=== PATIENT | female | born 1985 | race American Indian/Alaskan Native ===

== ENCOUNTER 2016-03-30 16:59 | Outpatient (CLI) | payer MEDICAID ==
[2016-03-30 14:54] VITALS: BP 125/64
[2016-03-30 15:45] LABS: Basophils % (Auto) 0.3 % (0.0-1.8); Eosinophils % (Auto) 0.4 % (0.0-4.3); Hematocrit 32.3 % (30.3-42.9); Hemoglobin 11.1 gm/dl (10.1-14.3); Mean Corpuscular HGB Conc 34 % (30-34); Mean Corpuscular Hemoglobin 32 pg (28-32); Mean Corpuscular Volume 95 fl (79-97); Platelet Count 247 K/mm3 (140-440); Red Blood Count 3.41 M/mm3 (3.65-5.03); Red Cell Distribution Width 12.2 % (13.2-15.2)
[2016-03-30 16:00] LABS: Bilirubin,Urine NEG (Negative); Blood,Urine NEG (Negative); Ketones,Urine NEG (Negative); Leukocyte Esterase,Urine NEG (Negative); Mucus,Urine FEW /HPF; Nitrite,Urine NEG (Negative); Protein,Urine <15 mg/dL mg/dL (Negative); Urobilinogen,Urine < 2.0 mg/dL (<2.0)
[~2016-03-30 16:59] MED LIST: LACTATED RINGERS 500 ML IV ONE
--- NOTE | 2016-03-31 10:02 | Ultrasound Report ---
OB ULTRASOUND: HISTORY: No care. TECHNIQUE: Transabdominal ultrasound with Doppler interrogation. Gestation: yo Position: breech Amniotic Fluid: WNL (7-24 cm) BABAK = 16.6 cm Placenta: posterior Placental Grade: I Heart Rate: 138 BPM Cervical length: 2.2 cm (Normal > 3 cm) NEUROANATOMY VISUALIZED: Choroid Plexus Cisterna Magnum Cerebellum Lateral Ventricle ANATOMY VISUALIZED: Stomach Kidneys Bladder Diaphragm 4 Chamber Heart Heart 3 Vessel Cord Abd. Cord Insert SPINE VISUALIZED: Longitudinal AP BPD: 6.7 cm = 27 w 1 d HC: 25.4 cm = 27 w 4 d AC: 23.8 cm = 28 w 1 d FL: 5.7 cm = 30 w 1 d HC/AC Ratio: 1.07 Cephalic Index: 76.1 Estimated Weight: 1256 grams LMP: 09-18-15 Clinical age = 27 w 5 d EDC: 06-24-16 US Gest. Age = 28 w 2 d EDC: 06-20-16
== END 2016-03-30 18:58 | disposition home or self-care (01) ==
LOC: TRG 16:59
PROVIDERS: ATTEND Obstetrics & Gynecology
DX: O32.1XX0 Maternal care for breech presentation, not applicable or unspecified (principal); O77.9 Labor and delivery complicated by fetal stress, unspecified; O47.03 False labor before 37 completed weeks of gestation, third trimester; Z3A.29 29 weeks gestation of pregnancy
CPT/HCPCS: 36415; 59025; 76805; 81001; 85025

== ENCOUNTER 2016-06-15 11:55 | Outpatient (CLI) | payer MEDICAID ==
--- NOTE | 2016-06-15 14:37 | Ultrasound Report ---
ULTRASOUND OB LIMITED History: Rupture of membranes Technique: Transabdominal ultrasound with Doppler interrogation. Gestation: Single Position: Cephalic Amniotic Fluid: Normal BABAK = 11.7 cm Heart Rate: 153 BPM
== END 2016-06-15 14:42 | disposition home or self-care (01) ==
LOC: TRG 11:55
PROVIDERS: ATTEND Obstetrics & Gynecology
DX: O42.92 Full-term premature rupture of membranes, unspecified as to length of time between rupture and onset of labor (principal); O47.1 False labor at or after 37 completed weeks of gestation; Z3A.38 38 weeks gestation of pregnancy
CPT/HCPCS: 59025; 76815

== ENCOUNTER 2016-06-15 15:33 | Outpatient (CLI) | payer MEDICAID ==
[2016-06-15 16:04] VITALS: BP 121/71
[2016-06-15 18:36] LABS: Bilirubin,Urine NEG (Negative); Blood,Urine NEG (Negative); Ketones,Urine NEG (Negative); Leukocyte Esterase,Urine NEG (Negative); Mucus,Urine FEW /HPF; Nitrite,Urine NEG (Negative); Protein,Urine <15 mg/dL mg/dL (Negative); WBC,Urine < 1.0 /HPF (0.0-6.0)
== END 2016-06-15 18:09 | disposition home or self-care (01) ==
LOC: TRG 15:33
PROVIDERS: ATTEND Obstetrics & Gynecology
DX: O47.03 False labor before 37 completed weeks of gestation, third trimester (principal); Z3A.38 38 weeks gestation of pregnancy
CPT/HCPCS: 59025; 81001

== ENCOUNTER 2018-08-22 09:11 | Emergency (ER) | payer MEDICAID ==
[2018-08-22 09:26] VITALS: BP 105/68
[2018-08-22 10:43] LABS: HCG Qualitative,Urine Positive (Negative)
[2018-08-22 10:45] LABS: Bacteria,Urine 1+ /HPF (Negative); Bilirubin,Urine NEG (Negative); Blood,Urine NEG (Negative); Color,Urine Yellow (Yellow); Mucus,Urine 1+ /HPF; Protein,Urine <15 mg/dL mg/dL (Negative)
== END 2018-08-22 12:01 | disposition left against medical advice (07) ==
LOC: ED 09:11
DX: R11.10 Vomiting, unspecified (principal); Z53.21 Procedure and treatment not carried out due to patient leaving prior to being seen by health care provider
CPT/HCPCS: 81001; 81025

== ENCOUNTER 2019-01-27 12:39 | Inpatient (IN) | payer MEDICAID ==
[2019-01-27] MEDS ORDERED: LACTATED RINGERS 1,000 ML ONE (14:13)
[2019-01-27] MEDS ORDERED: ONDANSETRON 4 MG/2 ML INJ ONE (14:25)
[2019-01-27] MEDS ORDERED: ONDANSETRON 4 MG/2 ML INJ IV ONE (15:00)
[2019-01-27] MEDS ORDERED: LACTATED RINGERS 500 ML IV ONE (15:00)
[2019-01-27 15:06] LABS: Bilirubin,Urine NEG (Negative); Blood,Urine NEG (Negative); Color,Urine Yellow (Yellow); Mucus,Urine FEW /HPF
[2019-01-27] MEDS ORDERED: LACTATED RINGERS 1,000 ML IV SCH (16:00)
[2019-01-27] MEDS ORDERED: AZITHROMYCIN 500 MG in SODIUM CHLORIDE 0.9% 250ML 250 ML IV ONE (18:00)
[2019-01-27] MEDS: LACTATED RINGERS 1,000 ML IV SCH ×2 (18:00→20:42)
--- NOTE | 2019-01-27 18:30 | Ultrasound Report ---
ULTRASOUND BIOPHYSICAL PROFILE INDICATION / CLINICAL INFORMATION: bpp/fabian. COMPARISON: 11/15/2018 FINDINGS: BREATHING MOVEMENT = 0 GROSS BODY MOVEMENT = 2 TONE = 2 QUALITATIVE AMNIOTIC FLUID VOLUME = 2 TOTAL BIOPHYSICAL SCORE = 6/8 AMNIOTIC FLUID INDEX (cm) = 23.7 PRESENTATION: Cephalic. HEART RATE (beats per minute): 131 IMPRESSION: 1. biophysical profile = 6/8 , due to absent breathing movements during the exam. Follow- up exam should be considered to evaluate for breathing movements. 2. Normal amniotic fluid index. Signer Name: Yann Bal MD Signed: 01/27/2019 6:25 PM Workstation Name: [email or web address]
--- NOTE | 2019-01-27 18:30 | Ultrasound Report ---
ULTRASOUND BIOPHYSICAL PROFILE INDICATION / CLINICAL INFORMATION: bpp/fabian. COMPARISON: 11/15/2018 FINDINGS: BREATHING MOVEMENT = 0 GROSS BODY MOVEMENT = 2 TONE = 2 QUALITATIVE AMNIOTIC FLUID VOLUME = 2 TOTAL BIOPHYSICAL SCORE = 6/8 AMNIOTIC FLUID INDEX (cm) = 23.7 PRESENTATION: Cephalic. HEART RATE (beats per minute): 131 IMPRESSION: 1. biophysical profile = 6/8 , due to absent breathing movements during the exam. Follow- up exam should be considered to evaluate for breathing movements. 2. Normal amniotic fluid index. Signer Name: Yann aBl MD Signed: 01/27/2019 6:25 PM Workstation Name: [email or web address]
--- NOTE | 2019-01-27 19:01 | History and Physical Report ---
History of Present Illness Date of examination: 01/27/19 Date of admission: 01/27/19 18:33 Chief complaint: SROM History of present illness: Pt is a 33yo BF EDC 02/23/19; EGA 36 1/7 weeks presents to L&D complaining of SROM clear fluid @ followed by irregular contractions. She received late care at [facility] since 27 weeks and course significant for previous C Section followed by x 2. records are available and GBS is Negative. 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 History: chlamydia, trichomonas Family/Genetic History: none Social history: no significant social history, single - Obstetrical History Expected Date of Delivery: 02/23/19 Actual Gestation: 36 Week(s) 2 Day(s) : 7 Medications and Allergies Allergies Allergy/AdvReac Type Severity Reaction Status Date / Time peanut Allergy Hives Verified 08/22/18 09:17 Home Medications Medication Instructions Recorded Confirmed Last Taken Type ALBUTEROL Inhaler(NF) [VENTOLIN 0.13 puff 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 06/18/16 06/18/16 06/17/16 History Inhaler(NF)] Ciprofloxacin (Nf) [Cipro] 500 mg PO BID 06/18/16 06/18/16 06/15/16 History Fluconazole 150 mg PO BID 06/18/16 06/18/16 06/15/16 History Vits96/Iron Fum/Folic 10 mg PO DAILY 06/18/16 06/18/16 06/18/16 History [ Tablet] Ferrous Sulfate [Feosol 325 MG tab] 325 mg PO BID #60 tablet 06/20/16 Unknown Rx Vit-Fe Fumar-FA [ 1 each PO QDAY #30 tablet 06/20/16 Unknown Rx Vitamin] oxyCODONE /ACETAMINOPHEN [Percocet 1 tab PO Q4H PRN #20 tablet 06/20/16 Unknown Rx 5/325 mg] Active Meds: Active Medications Lactated Ringer's (Lactated Ringers) 1,000 mls @ 125 mls/hr IV DIRECT QUENTIN Azithromycin 500 mg/ Sodium (Chloride) 250 mls @ 250 mls/hr IV ONCE ONE Stop: 01/27/19 18:59 Azithromycin 500 mg/ Sodium (Chloride) 250 mls @ 250 mls/hr IV Q24HR QUENTIN; Protocol Review of Systems All systems: negative - Vital Signs Vital signs: Vital Signs Temp Pulse Resp BP 98.5 F 99 H 14 122/66 01/27/19 13:50 01/27/19 13:50 01/27/19 13:50 01/27/19 13:50 Temp Pulse Resp BP Pulse Ox 98.5 F 99 H 14 122/66 01/27/19 13:50 01/27/19 13:59 01/27/19 13:50 01/27/19 13:59 - Physical Exam Breasts: Positive: deferred Abdomen: Positive: normal appearance, soft Genitourinary (Female): Positive: normal external genitalia Vagina: Positive: normal moisture Uterus: Positive: enlarged Extremities: Positive: normal - Obstetrical FHR: category 1 Uterine Contraction Monitor Mode: External Results Result Diagrams: 01/27/19 20:52 Abnormal lab results 01/27/19 Range/Units Unknown Urine pH 9.0 H (5.0-7.0) All other labs normal. Ultrasound: report reviewed (Cephalic) Assessment and Plan - Patient Problems (1) 36 weeks gestation of Onset Date: 01/27/19 Current Visit: Yes Status: Acute Plan to address problem: A: IUP @ 36 1/7 weeks PPROM Previous C Section Previous x 2 + Chlamydia - untreated P: Admit to L&D for Expectant vaginal delivery TOLAC IV Zithromax (2) premature rupture of membranes (PPROM) with onset of labor within 24 hours of rupture in third trimester, antepartum Onset Date: 01/27/19 Current Visit: Yes Status: Acute (3) Previous section Onset Date: 01/27/19 Current Visit: No Status: Chronic (4) History of Onset Date: 01/27/19 Current Visit: No Status: Chronic
[2019-01-27] MEDS ORDERED: LIDOCAINE (2%) 20 MG/1 ML VIAL 20 ML MDV INFILTRATI ONE (19:11)
[2019-01-27] MEDS ORDERED: ePHEDrine SULFATE 50 MG/1 ML INJ IV PRN (19:11)
[2019-01-27] MEDS ORDERED: MINERAL OIL 30 ML ORAL LIQD PO PRN (19:11)
[2019-01-27] MEDS ORDERED: TERBUTALINE 1 MG/1 ML INJ SUB-Q PRN (19:11)
[2019-01-27] MEDS ORDERED: fentaNYL 100 MCG/2 ML INJ IV PRN (19:11)
[2019-01-27] MEDS ORDERED: TERBUTALINE 1 MG/1 ML INJ IVP PRN (19:11)
[2019-01-27] MEDS ORDERED: OXYTOCIN DRIP 30 UNITS/500 ML BAG IV SCH ×2 (20:00)
[2019-01-27] MEDS ORDERED: OXYTOCIN 20 UNIT/1000ML DRIP 20 UNITS/1,000 ML BAG IV SCH (20:00)
[2019-01-27 21:13] LABS: Hematocrit 26.5 % (30.3-42.9); Hemoglobin 8.7 gm/dl (10.1-14.3); Mean Corpuscular HGB Conc 33 % (30-34); Mean Corpuscular Volume 87 fl (79-97); Platelet Count 205 K/mm3 (140-440); Red Blood Count 3.03 M/mm3 (3.65-5.03); Red Cell Distribution Width 13.9 % (13.2-15.2)
[2019-01-27] MEDS: BUTORPHANOL 2 MG/1 ML INJ IV PRN (23:16)
[2019-01-28] MEDS ORDERED: ALBUTEROL 2.5 MG/3 ML NEBU IH PRN (00:10)
[2019-01-28] MEDS ORDERED: ONDANSETRON 4 MG/2 ML INJ IV PRN ×2 (00:14→09:43)
[2019-01-28] MEDS: LACTATED RINGERS 1,000 ML IV SCH (04:08)
[2019-01-28] MEDS: BUTORPHANOL 2 MG/1 ML INJ IV PRN (06:40)
[2019-01-28] MEDS ORDERED: BICITRA ORAL LIQD 30ML PO ONE (09:39)
[2019-01-28] MEDS ORDERED: METOCLOPRAMIDE 10 MG/2 ML INJ IV ONE (09:39)
[2019-01-28] MEDS ORDERED: FAMOTIDINE 20 MG/2 ML INJ IV ONE (09:39)
[2019-01-28] MEDS ORDERED: HYDROmorphone 1 MG/1 ML INJ IV PRN (09:43)
[2019-01-28] MEDS ORDERED: PROMETHAZINE 25 MG RECT SUPP PR PRN (09:43)
[2019-01-28] MEDS ORDERED: NALOXONE 0.4 MG/1 ML INJ IV PRN ×2 (09:43→11:37)
[2019-01-28] MEDS ORDERED: PROMETHAZINE 25 MG TAB PO PRN (09:43)
--- NOTE | 2019-01-28 09:43 | Anesthesia Consultation ---
Anesthesia Consult and Med Hx Date of service: 01/28/19 - Airway Anesthetic Teeth Evaluation: Good ROM Head & Neck: Adequate Mental/Hyoid Distance: Adequate Mallampati Class: Class II Intubation Access Assessment: Good - Pulmonary Exam CTA: Yes - Cardiac Exam Cardiac Exam: RRR - Pre-Operative Health Status ASA Pre-Surgery Classification: ASA2, Emergency Proposed Anesthetic Plan: Spinal - Pulmonary Hx Asthma: Yes COPD: No Hx Pneumonia: No - Cardiovascular System Hx Hypertension: No Hx Heart Attack/AMI: No - Central Nervous System Hx Seizures: No CVA: No Hx Psychiatric Problems: No - Endocrine Hx Renal Disease: No Hx End Stage Renal Disease: No Hx Liver Disease: No Hx Hypothyroidism: No Hx Hyperthyroidism: No - Hematic Hx Anemia: No Hx Sickle Cell Disease: No - Other Systems Hx Alcohol Use: No Hx Cancer: Yes (cervical)
--- NOTE | 2019-01-28 09:45 | Anesthesia Day of Surgery ---
Anesthesia Day of Surgery - Day of Surgery Patient Examined: Yes Patient H&P Reviewed: Yes Patient is NPO: Yes
--- NOTE | 2019-01-28 09:51 | Progress Note ---
Assessment and Plan - Patient Problems (1) 36 weeks gestation of Onset Date: 01/27/19 Current Visit: Yes Status: Acute Plan to address problem: A: IUP @ 36 2/7 weeks PPROM Previous C Section Previous x 2 + Chlamydia - untreated P: Will proceed with a Repeat C Section with BTL (2) premature rupture of membranes (PPROM) with onset of labor within 24 hours of rupture in third trimester, antepartum Onset Date: 01/27/19 Current Visit: Yes Status: Acute (3) Previous section Onset Date: 01/27/19 Current Visit: No Status: Chronic (4) History of Onset Date: 01/27/19 Current Visit: No Status: Chronic Subjective - Subjective Date of service: 01/28/19 Principal diagnosis: IUP @ 36 2/7 weeks; PPROM Interval history: Pt is a 33yo BF EDC 02/23/19; EGA 36 2/7 weeks (EDC 02/13/19 per pt giving EGA 37 5/7 weeks) presented to L&D complaining of SROM clear fluid 01/27/19 @ followed by irregular contractions. She received late care at [facility] since 27 weeks and course significant for previous C Section followed by x 2. She received pitocin last night, but this morning she changed her mind and desires a Repeat C Section with Bilateral Tubal Ligation. Patient reports: loss of fluid, movement normal, contractions, no new complaints, no vaginal bleeding Objective - Vital Signs Vital Signs: Vital Signs - 12hr 01/27/19 01/27/19 01/27/19 21:49 21:54 23:16 Temperature Pulse Rate 92 H 70 Respiratory 24 Rate Blood Pressure 119/78 Blood Pressure [Left] O2 Sat by Pulse 99 Oximetry 01/27/19 01/27/19 01/27/19 23:26 23:28 23:29 Temperature 97.1 F L Pulse Rate 83 83 85 Respiratory 24 Rate Blood Pressure 108/60 Blood Pressure 108/60 [Left] O2 Sat by Pulse 98 Oximetry 01/27/19 01/27/19 01/27/19 23:31 23:36 23:41 Temperature Pulse Rate 90 82 90 Respiratory Rate Blood Pressure Blood Pressure [Left] O2 Sat by Pulse 100 98 98 Oximetry 01/27/19 01/27/19 01/27/19 23:46 23:51 23:55 Temperature Pulse Rate 88 91 H 103 H Respiratory Rate Blood Pressure 129/82 Blood Pressure [Left] O2 Sat by Pulse 97 97 Oximetry 01/27/19 01/28/19 01/28/19 23:56 00:01 00:06 Temperature Pulse Rate 98 H 101 H 108 H Respiratory Rate Blood Pressure Blood Pressure [Left] O2 Sat by Pulse 98 97 98 Oximetry 01/28/19 01/28/19 01/28/19 00:11 00:16 00:21 Temperature Pulse Rate 107 H 117 H 98 H Respiratory 20 Rate Blood Pressure Blood Pressure [Left] O2 Sat by Pulse 97 97 98 Oximetry 01/28/19 01/28/19 01/28/19 00:25 00:26 00:31 Temperature Pulse Rate 91 H 96 H 96 H Respiratory Rate Blood Pressure 129/69 Blood Pressure [Left] O2 Sat by Pulse 98 98 Oximetry 01/28/19 01/28/19 01/28/19 00:36 00:41 00:46 Temperature Pulse Rate 114 H 111 H 94 H Respiratory Rate Blood Pressure Blood Pressure [Left] O2 Sat by Pulse 99 98 100 Oximetry 01/28/19 01/28/19 01/28/19 00:51 00:54 00:56 Temperature Pulse Rate 94 H 83 87 Respiratory Rate Blood Pressure 104/57 Blood Pressure [Left] O2 Sat by Pulse 98 96 Oximetry 01/28/19 01/28/19 01/28/19 01:01 01:06 01:11 Temperature Pulse Rate 93 H 94 H 98 H Respiratory Rate Blood Pressure Blood Pressure [Left] O2 Sat by Pulse 99 98 98 Oximetry 01/28/19 01/28/19 01/28/19 01:16 01:21 01:24 Temperature Pulse Rate 85 79 82 Respiratory Rate Blood Pressure 116/78 Blood Pressure [Left] O2 Sat by Pulse 98 99 Oximetry 01/28/19 01/28/19 01/28/19 01:26 01:31 01:36 Temperature Pulse Rate 76 79 84 Respiratory Rate Blood Pressure Blood Pressure [Left] O2 Sat by Pulse 98 99 98 Oximetry 01/28/19 01/28/19 01/28/19 01:41 01:46 01:51 Temperature Pulse Rate 83 84 87 Respiratory Rate Blood Pressure Blood Pressure [Left] O2 Sat by Pulse 99 99 99 Oximetry 01/28/19 01/28/19 01/28/19 01:55 01:56 02:01 Temperature Pulse Rate 83 88 94 H Respiratory Rate Blood Pressure 112/68 Blood Pressure [Left] O2 Sat by Pulse 98 98 Oximetry 01/28/19 01/28/19 01/28/19 02:06 02:11 02:16 Temperature Pulse Rate 87 87 76 Respiratory Rate Blood Pressure Blood Pressure [Left] O2 Sat by Pulse 99 98 99 Oximetry 01/28/19 01/28/19 01/28/19 02:21 02:30 02:35 Temperature Pulse Rate 96 H 80 95 H Respiratory Rate Blood Pressure Blood Pressure [Left] O2 Sat by Pulse 99 99 99 Oximetry 01/28/19 01/28/19 01/28/19 02:40 02:45 02:50 Temperature Pulse Rate 95 H 80 96 H Respiratory Rate Blood Pressure Blood Pressure [Left] O2 Sat by Pulse 99 98 99 Oximetry 01/28/19 01/28/19 01/28/19 02:54 02:55 03:00 Temperature Pulse Rate 87 92 H 104 H Respiratory Rate Blood Pressure 110/68 Blood Pressure [Left] O2 Sat by Pulse 99 99 Oximetry 01/28/19 01/28/19 01/28/19 03:05 03:10 03:15 Temperature Pulse Rate 73 74 97 H Respiratory Rate Blood Pressure Blood Pressure [Left] O2 Sat by Pulse 99 100 100 Oximetry 01/28/19 01/28/19 01/28/19 03:20 03:25 03:26 Temperature Pulse Rate 83 85 95 H Respiratory Rate Blood Pressure 125/80 Blood Pressure [Left] O2 Sat by Pulse 100 99 Oximetry 01/28/19 01/28/19 01/28/19 03:30 03:35 03:40 Temperature 97.7 F Pulse Rate 81 104 H 87 Respiratory Rate Blood Pressure Blood Pressure [Left] O2 Sat by Pulse 99 100 99 Oximetry 01/28/19 01/28/19 01/28/19 03:45 03:50 03:54 Temperature Pulse Rate 87 83 86 Respiratory Rate Blood Pressure 107/66 Blood Pressure [Left] O2 Sat by Pulse 99 99 Oximetry 01/28/19 01/28/19 01/28/19 03:55 04:00 04:05 Temperature Pulse Rate 99 H 82 97 H Respiratory Rate Blood Pressure Blood Pressure [Left] O2 Sat by Pulse 98 99 99 Oximetry 01/28/19 01/28/19 01/28/19 04:10 04:15 04:20 Temperature Pulse Rate 98 H 93 H 85 Respiratory Rate Blood Pressure Blood Pressure [Left] O2 Sat by Pulse 100 97 99 Oximetry 01/28/19 01/28/19 01/28/19 04:24 04:25 04:30 Temperature Pulse Rate 84 84 81 Respiratory Rate Blood Pressure 112/68 Blood Pressure [Left] O2 Sat by Pulse 98 98 Oximetry 01/28/19 01/28/19 01/28/19 04:35 04:40 04:45 Temperature Pulse Rate 89 83 90 Respiratory Rate Blood Pressure Blood Pressure [Left] O2 Sat by Pulse 99 98 99 Oximetry 01/28/19 01/28/19 01/28/19 04:50 04:55 05:06 Temperature Pulse Rate 88 76 Respiratory Rate Blood Pressure Blood Pressure [Left] O2 Sat by Pulse 99 92 91 Oximetry 01/28/19 01/28/19 01/28/19 05:07 05:12 05:17 Temperature Pulse Rate 97 H 68 73 Respiratory Rate Blood Pressure Blood Pressure [Left] O2 Sat by Pulse 99 98 97 Oximetry 01/28/19 01/28/19 01/28/19 05:22 05:25 05:27 Temperature Pulse Rate 75 72 81 Respiratory Rate Blood Pressure 119/72 Blood Pressure [Left] O2 Sat by Pulse 98 97 Oximetry 01/28/19 01/28/19 01/28/19 05:32 05:37 05:42 Temperature Pulse Rate 88 76 84 Respiratory Rate Blood Pressure Blood Pressure [Left] O2 Sat by Pulse 99 98 98 Oximetry 01/28/19 01/28/19 01/28/19 05:47 05:52 05:55 Temperature Pulse Rate 84 82 76 Respiratory Rate Blood Pressure 116/73 Blood Pressure [Left] O2 Sat by Pulse 98 98 Oximetry 01/28/19 01/28/19 01/28/19 05:57 06:02 06:07 Temperature Pulse Rate 80 77 83 Respiratory Rate Blood Pressure Blood Pressure [Left] O2 Sat by Pulse 99 99 96 Oximetry 01/28/19 01/28/19 01/28/19 06:24 06:54 07:24 Temperature Pulse Rate 76 78 74 Respiratory Rate Blood Pressure 98/55 116/56 115/60 Blood Pressure [Left] O2 Sat by Pulse Oximetry 11/01/28/19 01/28/19 07:54 08:24 09:11 Temperature Pulse Rate 76 86 96 H Respiratory Rate Blood Pressure 120/73 118/62 Blood Pressure [Left] O2 Sat by Pulse 100 Oximetry 01/28/19 01/28/19 01/28/19 09:12 09:14 09:16 Temperature Pulse Rate 85 85 83 Respiratory Rate Blood Pressure 138/76 Blood Pressure [Left] O2 Sat by Pulse 93 100 Oximetry 01/28/19 09:24 Temperature Pulse Rate 89 Respiratory Rate Blood Pressure 123/67 Blood Pressure [Left] O2 Sat by Pulse Oximetry - Exam Abdomen: Present: normal appearance, soft Uterus: Present: normal FHR: category 1 Uterine Contraction Monitor Mode: External Cervical Dilatation: 1 (per nurse) Cervical Effacement Percentage: 50 (per nurse) station: -3 Uterine Contraction Pattern: Regular Uterine Tone Measurement Phase: Contraction Uterine Contraction Intensity: Strong/Firm - Labs Labs: Abnormal Labs 01/27/19 01/27/19 20:52 Unknown RBC 3.03 L Hgb 8.7 L Hct 26.5 L Urine pH 9.0 H Laboratory Results - last 24 hr 01/27/19 01/27/19 01/27/19 20:52 20:55 Unknown WBC 5.7 RBC 3.03 L Hgb 8.7 L Hct 26.5 L MCV 87 MCH 29 MCHC 33 RDW 13.9 Plt Count 205 Urine Color Yellow Urine Turbidity Clear Urine pH 9.0 H Ur Specific [place] 1.017 Urine Protein 100 mg/dl Urine Glucose (UA) Neg Urine Ketones Neg Urine Blood Neg Urine Nitrite Neg Urine Bilirubin Neg Urine Urobilinogen 2.0 Ur Leukocyte Esterase Neg Urine WBC (Auto) 1.0 Urine RBC (Auto) 2.0 U Epithel Cells (Auto) 2.0 Urine Mucus Few Blood Type A POSITIVE Antibody Screen Negative
[2019-01-28] MEDS ORDERED: ONDANSETRON 4 MG/2 ML INJ ONE (09:57)
[2019-01-28] MEDS ORDERED: DEXMEDETOMIDINE 200 MCG/2 ML VIAL IV ONE (09:57)
--- NOTE | 2019-01-28 09:58 | Ultrasound Report ---
US OB limited INDICATION: BABAK. COMPARISON: 01/27/2019 FINDINGS: Amniotic fluid index currently measures 17.3 cm, within normal limits. heart rate measures 1 31 bpm. position is cephalic. Signer Name: Yann Bal MD Signed: 01/28/2019 9:54 AM Workstation Name: [id number]
[2019-01-28] MEDS ORDERED: ceFAZolin/Water 2 GM/20 ML 2 GM/20 ML SYRINGE IV NR (10:00)
[2019-01-28] MEDS ORDERED: OXYTOCIN 20 UNIT/1000ML DRIP 20 UNITS/1,000 ML BAG IV SCH ×2 (10:00→12:00)
[2019-01-28] MEDS ORDERED: LACTATED RINGERS 1,000 ML IV SCH (10:00)
[2019-01-28] MEDS ORDERED: METOCLOPRAMIDE 10 MG/2 ML INJ ONE (10:03)
[2019-01-28] MEDS ORDERED: SODIUM CHLORIDE 0.9% IRR 1,500 ML BOTTLE IR ONE (10:45)
[2019-01-28] MEDS ORDERED: ceFAZolin/STERILE WATER 2 GM/20 ML SYRINGE IV ONE (10:45)
[2019-01-28] MEDS ORDERED: WATER FOR IRRIG STERILE 1,500 ML BOTTLE IR ONE (10:45)
[2019-01-28] MEDS ORDERED: PHENYLEPHRINE/NS 1,000 MCG/10 ML SYRINGE (OR USE) IV ONE (10:54)
[2019-01-28] MEDS ORDERED: HYDROmorphone 1 MG/1 ML INJ ONE (10:56)
[2019-01-28] MEDS ORDERED: fentaNYL 100 MCG/2 ML INJ ONE ×2 (11:00→11:11)
[2019-01-28] MEDS ORDERED: dexAMETHasone 20 MG/5 ML VIAL ONE (11:04)
[2019-01-28] MEDS ORDERED: BUPIVACAINE/PF (0.5%) 5 MG/1 ML 30 ML VIAL INFILTRATI ONE (11:04)
[2019-01-28] MEDS ORDERED: MIDAZOLAM 2 MG/2 ML INJ ONE (11:13)
--- NOTE | 2019-01-28 11:33 | Operative Report ---
Operative Report Operative Report: Date of procedure: 01/28/2019 Pre-operative diagnosis: 1. Intrauterine at 36 2/7 weeks 2. Prete rm Premature Rupture of Membranes 3. Previous C Section 4. Desires permanent sterilization Post-operative diagnosis: same Procedure name(s): 1. Repeat low transverse section 2. Bilateral Tubal Ligation Surgeon: Joseph Gutiérrez MD Web Site Administrator: None Anesthesia: Spinal anesthesia by Wes Sheriff CRNA EBL: 500 mL's Findings: A 2953 gm female Apgars 8 at 1 minute 9 at 5 minutes. Clear amniotic fluid. Normal uterus with normal tubes and ovaries bilaterally. Procedure: After the patient was prepped and draped in usual sterile fashion, and after satisfactory level of spinal anesthesia was obtained, the skin knife was used to make a transverse skin incision through the previous skin scar. The incision was incised down to layer of the fascia, which was nicked in the midline and extended laterally using the Bovie cautery. The rectus muscles were dissected off the rectus fascia both superiorly and inferiorly. The rectus bellies in the midline, and the peritoneum was entered under direct visualization. The peritoneal incision was extended superiorly and inferiorly. A bladder flap was created and the bladder blade was then placed. The uterus was scored in a curvilinear linear fashion, entered in the midline revealing clear amniotic fluid. The 's head was delivered onto the surgical field, and the oropharynx and nasopharynx were bulb suctioned. The rest of the infant's body was delivered, cord was doubly clamped and cut and the infant was handed to the awaiting respiratory team. The placenta was manually removed from the uterus, and the uterus removed from its normal anatomical position. After gentle uterine lavage, the incision was inspected and found to be without extensions. It was then closed in 2 layers using 0 Vicryl suture in a running interlocking fashion, the second layer imbricating the first. After good hemostasis was achieved, copious amounts or irrigation was performed, and the gutters were suctioned free of blood and blood clots. Attention was then turned to the tubal ligation. First the right fallopian tube was grasped using the [place], and after identifying the fimbriated end of the tube, the Filsche clip was applied to the proximal portion of the right tube. The same procedure was performed on the left fallopian tube. The left fallopian tube was grasped using the [place], and after identifying the fimbriated end of the tube, the Filsche clip was applied to the proximal portion of the left tube. Next, the peritoneum was re-approximated using 3-0 Vicryl suture in a running interlocking fashion, and then the rectus muscles were loosely re-approximated using 3-0 Vicryl suture in a [id number] configuration. The fascia was then re-approximated using #1 Vicryl suture in running interlocking fashion. The subcutaneous layer was made hemostatic using Bovie cautery, and the skin edges re-approximated using 4- 0 Vicryl suture in a sub-cuticular fashion. Patient tolerated the procedure well was transported to recovery in stable condition.
[2019-01-28] MEDS ORDERED: SIMETHICONE 80 MG CHEW TAB PO PRN (11:37)
[2019-01-28] MEDS ORDERED: LANOLIN/ZINC/DIMETHICONE (LANSINOH) 7 GM TP PRN (11:37)
[2019-01-28] MEDS ORDERED: SENNOSIDES 8.6 MG TAB PO PRN (11:37)
[2019-01-28] MEDS ORDERED: WITCH HAZEL/ GLYCERIN PAD TP PRN (11:37)
[2019-01-28] MEDS ORDERED: ACETAMINOPHEN 325 MG TAB PO PRN (11:37)
[2019-01-28] MEDS ORDERED: MAGNESIUM HYDROXIDE (MOM) ORAL LIQD UDC PO PRN (11:37)
--- NOTE | 2019-01-28 12:02 | Post Anesthesia Evaluation ---
- Post Anesthesia Evaluation Patient Participated: Yes Airway Patent: Yes Stable Respiratory Function: Yes Nausea/Vomiting: No Temp > 96.8F: Yes Pain Manageable: Yes (QL block for postop pain per dr Jd Gutiérrez) Adequeate Hydration: Yes Anesthesia Complications: No Block Receding Appropriately: Yes Patient on Ventilator: No
[2019-01-28] MEDS: D5W/LACTATED RINGERS 1,000 ML IV SCH ×2 (14:39→22:18)
[2019-01-28] MEDS: oxyCODONE /ACETAMINOPHEN 5-325MG TAB PO PRN (16:48)
[2019-01-28] MEDS ORDERED: AZITHROMYCIN 500 MG in SODIUM CHLORIDE 0.9% 250ML 250 ML IV SCH (18:00)
[2019-01-28] MEDS: HYDROcodone/ACETAMINOPHEN 5-325 MG TAB PO PRN (19:47)
[2019-01-28] MEDS: HYDROmorphone 1 MG/1 ML INJ IV PRN (21:09)
[2019-01-28 23:26] LABS: Hematocrit 30.3 % (30.3-42.9); Hemoglobin 9.8 gm/dl (10.1-14.3)
[2019-01-29] MEDS: oxyCODONE /ACETAMINOPHEN 5-325MG TAB PO PRN ×3 (00:02→15:53)
[2019-01-29] MEDS: HYDROcodone/ACETAMINOPHEN 5-325 MG TAB PO PRN (04:02)
[2019-01-29] MEDS ORDERED: TETANUS,DIPH,PERTUSS(ACELL) VACCINE 0.5 ML SYRINGE IM ONE (06:00)
[2019-01-29] MEDS ORDERED: MEASLES, MUMPS & RUBELLA 12,500 UNIT/0.5 ML VACCINE SUB-Q ONE (06:00)
--- NOTE | 2019-01-29 09:45 | Progress Note ---
Assessment and Plan - Patient Problems (1) 36 weeks gestation of Onset Date: 01/27/19 Current Visit: Yes Status: Resolved (2) premature rupture of membranes (PPROM) with onset of labor within 24 hours of rupture in third trimester, antepartum Onset Date: 01/27/19 Current Visit: Yes Status: Resolved (3) Previous section Onset Date: 01/27/19 Current Visit: No Status: Chronic (4) History of Onset Date: 01/27/19 Current Visit: No Status: Chronic (5) Status post Onset Date: 01/29/19 Current Visit: Yes Status: Resolved Plan to address problem: A: S/P Repeat C Section with BTL - POD #1 Doing well Asymptomatic anemia - stable P: Continue RPOC Anticipate discharge in 24-48hrs Subjective - Subjective Date of service: 01/29/19 Principal diagnosis: s/p Repeat C Section with BTL - POD #1 Interval history: Pt is feeling well s/p a Repeat C Section with Bilateral Tubal Ligation. She is tolerating a liquid diet without nausea or vomiting. Bleeding improved. Patient reports: appetite normal, voiding normally, pain well controlled, flatus, ambulating normally, no dizzy ambulation, no nauseated [place]: doing well, nursing well, bottle feeding Objective - Vital Signs Latest vital signs: Vital Signs Temp Pulse Resp BP BP Pulse Ox 01/29/19 07:36 97.4 F L 87 18 126/83 01/29/19 00:11 98.2 F 20 121/78 01/29/19 00:10 76 100 01/28/19 20:17 98.8 F 94 H 20 115/98 98 01/28/19 14:05 97.3 F L 65 18 118/78 99 01/28/19 13:30 97.5 F L 01/28/19 13:27 97.5 F L 70 19 125/86 98 01/28/19 13:00 70 23 128/86 98 01/28/19 12:50 72 22 108/77 96 01/28/19 12:35 67 20 107/72 01/28/19 12:20 75 11 L 116/71 01/28/19 12:05 71 17 115/78 97 01/28/19 11:50 75 12 100/65 100 01/28/19 11:45 72 18 105/69 99 01/28/19 11:40 76 15 104/67 99 01/28/19 11:35 97.7 F 74 15 112/54 99 Intake and Output 01/28/19 01/29/19 01/29/19 22:59 06:59 14:59 Intake Total 956.25 240 480 Output Total 2150 Balance 956.25 -1910 480 Intake: IV 956.25 D5lr 1,000 ml @ 125 mls/ 956.25 hr IV DIRECT QUENTIN Rx#: [id number] Oral 240 480 Output: Urine 2150 Indwelling Catheter 2150 Other: Total, Intake Amount 240 480 Total, Output Amount 900 - Exam Breasts: Present: deferred Abdomen: Present: normal appearance, soft Uterus: Present: normal, firm, fundal height below umbilicus Extremities: Present: normal Incision: Present: normal, dry, intact, dressed - Labs Labs: Abnormal lab results 01/28/19 Range/Units 23:06 Hgb 9.8 L (10.1-14.3) gm/dl Laboratory Tests 01/27/19 01/27/19 01/27/19 20:52 20:55 Unknown WBC 5.7 RBC 3.03 L Hgb 8.7 L Hct 26.5 L MCV 87 MCH 29 MCHC 33 RDW 13.9 Plt Count 205 Urine Color Yellow Urine Turbidity Clear Urine pH 9.0 H Ur Specific [place] 1.017 Urine Protein 100 mg/dl Urine Glucose (UA) Neg Urine Ketones Neg Urine Blood Neg Urine Nitrite Neg Urine Bilirubin Neg Urine Urobilinogen 2.0 Ur Leukocyte Esterase Neg Urine WBC (Auto) 1.0 Urine RBC (Auto) 2.0 U Epithel Cells (Auto) 2.0 Urine Mucus Few Blood Type A POSITIVE Antibody Screen Negative 01/28/19 23:06 WBC RBC Hgb 9.8 L Hct 30.3 MCV MCH MCHC RDW Plt Count Urine Color Urine Turbidity Urine pH Ur Specific [place] Urine Protein Urine Glucose (UA) Urine Ketones Urine Blood Urine Nitrite Urine Bilirubin Urine Urobilinogen Ur Leukocyte Esterase Urine WBC (Auto) Urine RBC (Auto) U Epithel Cells (Auto) Urine Mucus Blood Type Antibody Screen
[2019-01-29] MEDS: FERROUS SULFATE 325 MG TAB PO SCH (11:16)
[2019-01-29] MEDS: PRENATAL VIT27-FE FUMARATE-FOLIC ACID VIT TAB PO SCH (11:16)
[2019-01-29] MEDS: HYDROmorphone 1 MG/1 ML INJ IV PRN ×3 (11:17→22:00)
[2019-01-30] MEDS: HYDROmorphone 1 MG/1 ML INJ IV PRN (02:04)
[2019-01-30] MEDS: oxyCODONE /ACETAMINOPHEN 5-325MG TAB PO PRN ×4 (05:40→22:32)
[2019-01-30] MEDS: FERROUS SULFATE 325 MG TAB PO SCH (09:54)
[2019-01-30] MEDS: PRENATAL VIT27-FE FUMARATE-FOLIC ACID VIT TAB PO SCH (09:54)
--- NOTE | 2019-01-30 09:57 | Progress Note ---
Assessment and Plan - Patient Problems (1) 36 weeks gestation of Onset Date: 01/27/19 Current Visit: Yes Status: Resolved (2) premature rupture of membranes (PPROM) with onset of labor within 24 hours of rupture in third trimester, antepartum Onset Date: 01/27/19 Current Visit: Yes Status: Resolved (3) Previous section Onset Date: 01/27/19 Current Visit: No Status: Chronic (4) History of Onset Date: 01/27/19 Current Visit: No Status: Chronic (5) Status post Onset Date: 01/29/19 Current Visit: Yes Status: Resolved Plan to address problem: A: S/P Repeat C Section with BTL - POD #2 Doing well Asymptomatic anemia - stable P: Continue RPOC Anticipate discharge in 24-48hrs Subjective - Subjective Date of service: 01/30/19 Principal diagnosis: s/p Repeat C Section with BTL - POD #2 Interval history: Pt is feeling well s/p a Repeat C Section with Bilateral Tubal Ligation, just complaining of pain. She is tolerating a reg diet without nausea or vomiting. She is not ambulating. Patient reports: appetite normal, voiding normally, pain well controlled, flatus, no dizzy ambulation, no ambulating normally, no nauseated [place]: doing well, nursing well, bottle feeding Objective - Vital Signs Latest vital signs: Vital Signs Temp Pulse Resp BP BP Pulse Ox 01/30/19 08:05 97.5 F L 79 18 127/84 97 01/30/19 06:40 18 01/30/19 05:40 18 01/30/19 02:34 18 01/30/19 02:04 18 01/30/19 00:50 97.7 F 76 18 118/71 99 01/29/19 22:30 18 01/29/19 22:00 18 01/29/19 18:09 20 01/29/19 16:53 20 01/29/19 16:08 98.0 F 82 18 132/87 01/29/19 11:47 20 Intake and Output 01/29/19 01/30/19 01/30/19 22:59 06:59 14:59 Intake Total 480 240 Balance 480 240 Intake: Oral 480 Intake, Free Water 240 Other: Total, Intake Amount 480 # Voids Void 1 - Exam Breasts: Present: deferred Abdomen: Present: normal appearance, soft Uterus: Present: normal, firm, fundal height below umbilicus Extremities: Present: normal Incision: Present: normal, dry, intact, dressed
[2019-01-31] MEDS: oxyCODONE /ACETAMINOPHEN 5-325MG TAB PO PRN ×3 (03:41→20:07)
[2019-01-31] MEDS: HYDROcodone/ACETAMINOPHEN 5-325 MG TAB PO PRN (08:58)
[2019-01-31] MEDS: PRENATAL VIT27-FE FUMARATE-FOLIC ACID VIT TAB PO SCH (08:59)
[2019-01-31] MEDS: FERROUS SULFATE 325 MG TAB PO SCH (08:59)
[2019-01-31] MEDS: BUTALB/ACETAMINOPHEN/CAFFEINE TAB PO PRN (16:29)
--- NOTE | 2019-01-31 19:40 | Progress Note ---
Assessment and Plan - Patient Problems (1) 36 weeks gestation of Onset Date: 01/27/19 Current Visit: Yes Status: Resolved (2) premature rupture of membranes (PPROM) with onset of labor within 24 hours of rupture in third trimester, antepartum Onset Date: 01/27/19 Current Visit: Yes Status: Resolved (3) Previous section Onset Date: 01/27/19 Current Visit: No Status: Chronic (4) History of Onset Date: 01/27/19 Current Visit: No Status: Chronic (5) Status post Onset Date: 01/29/19 Current Visit: Yes Status: Resolved Plan to address problem: A: S/P Repeat C Section with BTL - POD #3 Doing well Asymptomatic anemia - stable Migraine headache P: Continue RPOC Anticipate discharge tomorrow. Subjective - Subjective Date of service: 01/31/19 Principal diagnosis: s/p Repeat C Section with BTL - POD #3 Interval history: Pt is feeling well s/p a Repeat C Section with Bilateral Tubal Ligation, just complaining of migraine headache. She is tolerating a reg diet without nausea or vomiting, ambulating and voiding without difficulty. Patient reports: appetite normal, voiding normally, pain well controlled, flatus, ambulating normally, no dizzy ambulation, no nauseated : doing well, nursing well, bottle feeding Objective - Vital Signs Latest vital signs: Vital Signs Temp Pulse Resp BP Pulse Ox 01/31/19 17:16 98.4 F 64 18 138/87 99 01/31/19 07:56 98.6 F 59 L 18 133/87 98 01/31/19 03:41 18 01/31/19 00:52 98.7 F 63 18 125/77 98 01/30/19 22:32 18 Intake and Output 01/31/19 01/31/19 01/31/19 06:59 14:59 22:59 Intake Total 720 240 960 Balance 720 240 960 Intake: Oral 240 240 Intake, Free Water 720 720 Other: Total, Intake Amount 240 240 # Voids Void 2 1 3 - Exam Breasts: Present: deferred Abdomen: Present: normal appearance, soft Uterus: Present: normal, firm, fundal height below umbilicus Extremities: Present: normal Incision: Present: normal, dry, intact
[2019-02-01] MEDS: HYDROcodone/ACETAMINOPHEN 5-325 MG TAB PO PRN ×2 (02:12→12:13)
[2019-02-01] MEDS: BUTALB/ACETAMINOPHEN/CAFFEINE TAB PO PRN ×2 (03:45→23:22)
[2019-02-01] MEDS ORDERED: BUTORPHANOL 2 MG/1 ML INJ ONE (03:52)
[2019-02-01] MEDS: oxyCODONE /ACETAMINOPHEN 5-325MG TAB PO PRN ×2 (08:42→17:31)
[2019-02-01] MEDS: FERROUS SULFATE 325 MG TAB PO SCH (10:21)
[2019-02-01] MEDS: PRENATAL VIT27-FE FUMARATE-FOLIC ACID VIT TAB PO SCH (10:21)
--- NOTE | 2019-02-01 11:35 | Progress Note ---
Assessment and Plan - Patient Problems (1) 36 weeks gestation of Onset Date: 01/27/19 Current Visit: Yes Status: Resolved (2) premature rupture of membranes (PPROM) with onset of labor within 24 hours of rupture in third trimester, antepartum Onset Date: 01/27/19 Current Visit: Yes Status: Resolved (3) Previous section Onset Date: 01/27/19 Current Visit: No Status: Chronic (4) History of Onset Date: 01/27/19 Current Visit: No Status: Chronic (5) Status post Onset Date: 01/29/19 Current Visit: Yes Status: Resolved Plan to address problem: A: S/P Repeat C Section with BTL - POD #4 Doing well Asymptomatic anemia - stable Migraine headache P: Continue RPOC Anticipate discharge tomorrow. Subjective - Subjective Date of service: 02/01/19 Principal diagnosis: s/p Repeat C Section with BTL - POD #4 Interval history: Pt is complaining of recurrent migraine headache. She is tolerating a reg diet without nausea or vomiting, ambulating and voiding without difficulty. Patient reports: appetite normal, voiding normally, pain well controlled, flatus, ambulating normally, no dizzy ambulation, no nauseated [place]: doing well, nursing well, bottle feeding Objective - Vital Signs Latest vital signs: Vital Signs Temp Pulse Resp BP BP Pulse Ox 02/01/19 08:42 20 02/01/19 08:00 98.9 F 59 L 20 138/87 98 01/31/19 23:17 98.5 F 70 20 112/76 97 01/31/19 17:16 98.4 F 64 18 138/87 99 Intake and Output 01/31/19 02/01/19 02/01/19 22:59 06:59 14:59 Intake Total 1440 240 Balance 1440 240 Intake: Oral 720 240 Intake, Free Water 720 Other: Total, Intake Amount 480 240 # Voids Void 1 1 - Exam Breasts: Present: deferred Abdomen: Present: normal appearance, soft Uterus: Present: normal, firm, fundal height below umbilicus Extremities: Present: normal Incision: Present: normal, intact
[2019-02-02] MEDS: oxyCODONE /ACETAMINOPHEN 5-325MG TAB PO PRN ×2 (01:17→08:59)
[2019-02-02] MEDS: FERROUS SULFATE 325 MG TAB PO SCH (08:58)
[2019-02-02] MEDS: PRENATAL VIT27-FE FUMARATE-FOLIC ACID VIT TAB PO SCH (08:59)
--- NOTE | 2019-02-02 09:33 | Discharge Summary ---
Providers - Providers Date of Admission: 01/27/19 18:33 Date of discharge: 02/02/19 Attending physician: GARRISON ADAMES Primary care physician: GARRISON ADAMES Hospitalization Reason for admission: section, rupture of membranes, IUP at term Delivery: Procedure: section, bilateral tubal ligation, repeat low transverse Episiotomy: none Laceration: none Incision: normal, dry, intact Other procedures: tubal ligation complications: other (migraine headaches) Discharge diagnosis: IUP at term delivered baby: female Hospital course: Pt is a 33yo BF EDC 02/23/19; EGA 36 2/7 weeks (EDC 02/13/19 per pt giving EGA 37 5/7 weeks) who presented to L&D complaining of SROM clear fluid 01/27/19 @ followed by irregular contractions. She received late care at [facility] since 27 weeks and course significant for previous C Section followed by x 2. She received pitocin on the night of admission, but the next morning she changed her mind and desired a Repeat C Section with Bilateral Tubal Ligation. She underwent an uncomplicated Repeat C Section with BTL, and by POD #2 she was tolerating a reg diet without nausea or vomiting, ambulating and voiding without difficulty. However she had migraine headaches which resolved by POD #4. She was therefore discharged to home on POD #5 in stable condition. Condition at discharge: Good Disposition: DC-30 STILL A PATIENT - Discharge Diagnoses (1) 36 weeks gestation of Status: Resolved (2) premature rupture of membranes (PPROM) with onset of labor within 24 hours of rupture in third trimester, antepartum Status: Resolved (3) Previous section Status: Chronic (4) History of Status: Chronic (5) Status post Status: Resolved Plan - Discharge Medications Prescriptions: Ferrous Sulfate [Feosol 325 MG tab] 325 mg PO QDAY #60 tablet Butalb/Acetamin/Caff 50-325-40 [Fioricet 50-325-40] 1 tab PO Q4H PRN #20 tablet PRN Reason: Headache oxyCODONE /ACETAMINOPHEN [Percocet 5/325 mg] 1 tab PO Q6H PRN #30 tablet PRN Reason: Pain, Severe (7-10) Vit-Fe Fumar-FA [ Vitamin] 1 each PO QDAY #30 tablet - Provider Discharge Summary Activity: routine, no sex for 6 weeks, no heavy lifting 4 weeks, no strenuous exercise Diet: routine Instructions: routine Additional instructions: [] Smoking cessation referral if applicable(refer to patient education folder for contact #) [] Refer to [facility] Booklet Call your doctor immediately for: * Fever > 100.5 * Heavy vaginal bleeding ( >1 pad per hour) * Severe persistent headache * Shortness of breath * Reddened, hot, painful area to leg or breast * Drainage or odor from incision. * Keep incision clean and dry at all times and follow doctor's instructions regarding bathing/showering - Follow up plan Follow up: GARRISON ADAMES MD [Primary Care Provider] - 14 Days DUNCAN MEDINA [Advanced Practice Nurse] - 14 Days
[2019-02-02 13:54] VITALS: BP 122/82
[2019-02-02] MEDS: HYDROcodone/ACETAMINOPHEN 5-325 MG TAB PO PRN (14:35)
[2019-02-02] MEDS: BUTALB/ACETAMINOPHEN/CAFFEINE TAB PO PRN (15:31)
== END 2019-02-02 17:00 | disposition home or self-care (01) | DRG 765 ==
LOC: TRG 12:39 → LD 18:33 → OB 01-28 14:11
PROVIDERS: ADMIT Obstetrics & Gynecology; ATTEND Obstetrics & Gynecology
PROC: 10D00Z1 Extraction of Products of Conception, Low, Open Approach (ICD-10-PCS; principal; 2019-01-28)
PROC: 0UL70CZ Occlusion of Bilateral Fallopian Tubes with Extraluminal Device, Open Approach (ICD-10-PCS; 2019-01-28)
PROC: 3E0234Z Introduction of Serum, Toxoid and Vaccine into Muscle, Percutaneous Approach (ICD-10-PCS; 2019-01-29)
PROC: 3E0134Z Introduction of Serum, Toxoid and Vaccine into Subcutaneous Tissue, Percutaneous Approach (ICD-10-PCS; 2019-01-29)
DX: O34.211 Maternal care for low transverse scar from previous cesarean delivery (principal); O99.354 Diseases of the nervous system complicating childbirth; O42.013 Preterm premature rupture of membranes, onset of labor within 24 hours of rupture, third trimester; O90.81 Anemia of the puerperium; J45.909 Unspecified asthma, uncomplicated; O99.52 Diseases of the respiratory system complicating childbirth; G43.909 Migraine, unspecified, not intractable, without status migrainosus; Z3A.36 36 weeks gestation of pregnancy; Z37.0 Single live birth; Z91.010 Allergy to peanuts; Z79.51 Long term (current) use of inhaled steroids; Z79.899 Other long term (current) drug therapy; Z23 Encounter for immunization; Z30.2 Encounter for sterilization
CPT/HCPCS: 36415; 59025; 76815; 76819; 81001; 85014; 85018; 85027; 86706; 86762; 86850; 86900; 86901; 90715; 96360; 96361; 96365; 96366; 96367; 96374; G0378; J0456; J0595; J0690; J1100; J1170; J2250; J2370; J2405; J2590; J2765; J3010; J3490; J7050; J7120; J7121